=== PATIENT | female | born 1970 | race Two or more races ===

== ENCOUNTER 2024-05-12 06:21 | Day surgery (SDC) | payer OTHER ==
[2024-05-07 11:22] VITALS: BMI 24.4
[2024-05-12] MEDS ORDERED: MIDAZOLAM HCL 2 MG/2 ML SINGLE DOSE VIAL ONE (07:09)
[2024-05-12] MEDS ORDERED: FENTANYL CITRATE/PF 50 MCG/ML VIAL ONE (07:09)
[2024-05-12] MEDS ORDERED: ROPIVACAINE HCL/PF 100 MG/20 ML VIAL ONE (07:10)
[2024-05-12] MEDS ORDERED: ceFAZolin SODIUM 1 GM VIAL ONE ×2 (07:29→07:51)
[2024-05-12] MEDS ORDERED: PROPOFOL 20 ML ONE (07:38)
[2024-05-12] MEDS ORDERED: ONDANSETRON 4 MG/2 ML VIAL ONE (08:10)
[2024-05-12] MEDS ORDERED: DEXTROSE 50%-WATER 25 GM/50 ML DISP.SYRIN ONE (08:11)
[2024-05-12 10:45] VITALS: RESP 18
[2024-05-12 11:05] VITALS: PULSE 56; TEMP 97.8
[2024-05-12 14:12] VITALS: BP 118/61
== END 2024-05-12 12:40 | disposition home or self-care (01) ==
LOC: FASU 06:21
PROVIDERS: ATTEND Orthopaedic Surgery Sports Medicine
PROC: 0LS34ZZ Reposition Right Upper Arm Tendon, Percutaneous Endoscopic Approach (ICD-10-PCS; principal; 2024-05-12 08:04)
PROC: 0RNJ4ZZ Release Right Shoulder Joint, Percutaneous Endoscopic Approach (ICD-10-PCS; 2024-05-12 08:04)
PROC: 0PB94ZZ Excision of Right Clavicle, Percutaneous Endoscopic Approach (ICD-10-PCS; 2024-05-12 08:04)
DX: M75.121 Complete rotator cuff tear or rupture of right shoulder, not specified as traumatic (principal); M75.21 Bicipital tendinitis, right shoulder; M19.011 Primary osteoarthritis, right shoulder; M75.51 Bursitis of right shoulder; M94.211 Chondromalacia, right shoulder; M75.01 Adhesive capsulitis of right shoulder
CPT/HCPCS: 94760; C1713